=== PATIENT | female | born 1960 | race Caucasian/White ===

== ENCOUNTER → 2025-06-28 | Outpatient (CLI) | payer MEDICARE, OTHER | LOC: M CARPUL 14:16 | PROVIDERS: ATTEND Registered Nurse | DX: R94.31 Abnormal electrocardiogram [ECG] [EKG] (principal); R07.9 Chest pain, unspecified ==

== ENCOUNTER → 2025-07-11 | Outpatient (CLI) | payer MEDICARE, OTHER | LOC: M CARPUL 13:31 | PROVIDERS: ATTEND Registered Nurse | DX: R94.31 Abnormal electrocardiogram [ECG] [EKG] (principal); R07.9 Chest pain, unspecified ==